=== PATIENT | male | born 2000 | race Caucasian/White ===

== ENCOUNTER 2022-09-12 20:27 | Emergency (ER) | payer SELFPAY ==
[~2022-09-12] VITALS: Ht 193 cm; Wt 81.8 kg
[2022-09-12 20:38] VITALS: TEMP 98.2
[2022-09-13 00:48] VITALS: BP 119/74; PULSE 54
[2022-09-13] MEDS ORDERED: FLEXERIL 1010 MG/TAB PO (01:22)
== END 2022-09-13 01:35 | disposition home or self-care (01) ==
LOC: COL.ER 20:27
DX: M54.50 Low back pain, unspecified (principal); Z28.310 Unvaccinated for COVID-19; X50.1XXA Overexertion from prolonged static or awkward postures, initial encounter; Y92.59 Other trade areas as the place of occurrence of the external cause; Y99.0 Civilian activity done for income or pay